=== PATIENT | male | born 1975 | race African-American/Black ===

== ENCOUNTER → 2018-11-27 | Outpatient (CLI) | payer OTHER ==
--- NOTE | 2018-11-30 16:42 | 24HR ---
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 The mean heart rate was 74 bpm. The maximum heart rate was 130 bpm or spinal sinus tachycardia at 5:06 PM. The minimum heart rate was 44 bpm or spotting with sinus bradycardia 3:55 AM. The patient exhibited tachycardia defined as heart rate greater than 100 bpm 1% of the monitored time. The patient exhibited bradycardia defined as heart rate less than 50 bpm less than 1% of the monitored time. There were no significant supraventricular arrhythmias noted. There were no significant ventricular arrhythmias noted. There were no episodes of atrial for ablation or flutter noted. There were no significant pauses and rhythm. The patient reported lightheadedness. Occasions. Her symptoms do not appear to correlate with significant underlying cardiac arrhythmia. Electronically Signed On 11-30-2018 16:42:20 CDT by Jacinto Milian [email or web address] <ELECTRONICALLY SIGNED> By: Jacinto Milian MD, [facility] 11/30/18 1642 6 6 Jacinto Milian MD, [facility] /EPI
== END ==
LOC: M.CRD 11:00
DX: R00.1 Bradycardia, unspecified (principal); R42 Dizziness and giddiness; R00.0 Tachycardia, unspecified